=== PATIENT | female | born 1950 | race Caucasian/White ===

== ENCOUNTER 2022-01-26 05:56 | Day surgery (SDC) | payer OTHER ==
[2022-01-20 18:46] VITALS: BMI 26.6
[~2022-01-26 05:56] MED LIST: VANCOMYCIN 1,000 MG VIAL (RESTRICTED TO ID ONLY) IVPB ONE
[2022-01-26] MEDS ORDERED: CELECOXIB 200 MG CAPSULE PO ONE (06:33)
[2022-01-26] MEDS ORDERED: VANCOMYCIN 1,000 MG VIAL (RESTRICTED TO ID ONLY) ONE (07:08)
[2022-01-26] MEDS ORDERED: ceFAZolin SODIUM 1 GM VIAL ONE ×2 (07:08→08:07)
[2022-01-26] MEDS ORDERED: FENTANYL CITRATE/PF 50 MCG/ML VIAL ONE (07:31)
[2022-01-26] MEDS ORDERED: BUPIVACAINE HCL/PF 0.5% (5MG/ML) 10 ML VIAL ONE (07:32)
[2022-01-26] MEDS ORDERED: BUPIVACAINE LIPOSOME/PF (EXPAREL) 266 MG/20 ML VIAL ONE (07:32)
[2022-01-26] MEDS ORDERED: MIDAZOLAM HCL 2 MG/2 ML SINGLE DOSE VIAL ONE (07:32)
[2022-01-26] MEDS ORDERED: CEFAZOLIN 2 GM in DEXTROSE 5%-WATER - 50 ML IVPB ONE (08:00)
[2022-01-26] MEDS ORDERED: TRANEXAMIC ACID 1000 MG/10 ML VIAL IVPUSH ONE (08:00)
[2022-01-26] MEDS ORDERED: MAG HYDROX/AL HYDROX/SIMETH 30 ML UNIT-DOSE CUP PO PRN (08:02)
[2022-01-26] MEDS ORDERED: DEXAMETHASONE SOD PHOSPHATE 4 MG/1 ML VIAL ONE (08:07)
[2022-01-26] MEDS ORDERED: TRANEXAMIC ACID 1000 MG/10 ML VIAL ONE (08:07)
[2022-01-26] MEDS ORDERED: PROPOFOL 20 ML ONE (08:11)
[2022-01-26] MEDS ORDERED: LACTATED RINGERS SOLUTION 1,000 ML IV SCH (08:15)
[2022-01-26] MEDS ORDERED: ZOLPIDEM TARTRATE 5 MG TABLET PO PRN (08:43)
[2022-01-26] MEDS ORDERED: VANCOMYCIN 1,000 MG VIAL (RESTRICTED TO ID ONLY) IVPB ONE (09:13)
[2022-01-26] MEDS ORDERED: ACETAMINOPHEN 1000 MG/100 ML BAG IVPB ONE (11:17)
[2022-01-26] MEDS ORDERED: oxyCODONE HCL 5 MG TABLET PO PRN (11:17)
[2022-01-26] MEDS: MULTIVITAMINS (DAILY MVI) TABLET (FP) PO SCH (11:41)
[2022-01-26] MEDS: PANTOPRAZOLE 40 MG TABLET PO SCH (11:41)
[2022-01-26] MEDS: KETOROLAC TROMETHAMINE 30 MG/1 ML VIAL IVPUSH SCH ×2 (12:00→17:14)
[2022-01-26] MEDS ORDERED: CEFAZOLIN SODIUM 2 GM VIAL ONE ×2 (16:40→23:59)
[2022-01-26] MEDS ORDERED: DEXTROSE 5%-WATER 100 ML IVPB ONE ×2 (16:40→23:59)
[2022-01-26] MEDS: CEFAZOLIN SODIUM 2 GM in DEXTROSE 5%-WATER 100 ML IVPB SCH (16:43)
[2022-01-26] MEDS: oxyCODONE HCL 5 MG TABLET PO PRN (16:51)
[2022-01-26] MEDS: ACETAMINOPHEN 500 MG TABLET (FP) PO SCH (17:15)
[2022-01-26] MEDS: ONDANSETRON 4 MG/2 ML VIAL IVPUSH PRN (19:24)
[2022-01-26] MEDS: SENNOSIDES/DOCUSATE COMBO (SENNA PLUS) TABLET (UD) PO SCH (21:16)
[2022-01-26] MEDS: oxyCODONE HCL 10 MG SUSTAINED ACTING TABLET PO SCH (21:17)
[2022-01-26] MEDS ORDERED: PATIENT'S OWN MEDICATION (NON-FORMULARY) (Zolpidem Tartrate [Ambien] 10 MG Tablet) PO SCH (22:00)
[2022-01-26 23:10] VITALS: TEMP 97.6
[2022-01-27] MEDS: CEFAZOLIN SODIUM 2 GM in DEXTROSE 5%-WATER 100 ML IVPB SCH (00:07)
[2022-01-27] MEDS: ACETAMINOPHEN 500 MG TABLET (FP) PO SCH ×3 (00:08→12:50)
[2022-01-27] MEDS: oxyCODONE HCL 5 MG TABLET PO PRN ×3 (00:12→09:03)
[2022-01-27] MEDS: ONDANSETRON 4 MG/2 ML VIAL IVPUSH PRN ×2 (05:26→09:03)
[2022-01-27] MEDS ORDERED: LEVOTHYROXINE NA 100 MCG TABLET (FP) PO SCH (07:00)
[2022-01-27] MEDS ORDERED: ASPIRIN 325 MG TABLET PO SCH (08:00)
[2022-01-27 08:38] LABS: HEMATOCRIT 41.2 % (32.4-45.2); HEMOGLOBIN 14.4 G/dL (10.7-15.3); MCHC 34.9 g/dl (32.0-36.0); MEAN CELL VOLUME 91.5 fl (80-96); RDW 13.6 % (11.6-15.6)
[2022-01-27 09:16] VITALS: BP 126/68; PULSE 90
[2022-01-27] MEDS: SENNOSIDES/DOCUSATE COMBO (SENNA PLUS) TABLET (UD) PO SCH (10:56)
[2022-01-27] MEDS: MULTIVITAMINS (DAILY MVI) TABLET (FP) PO SCH (10:56)
[2022-01-27] MEDS: oxyCODONE HCL 10 MG SUSTAINED ACTING TABLET PO SCH (10:56)
[2022-01-27] MEDS: PANTOPRAZOLE 40 MG TABLET PO SCH (10:56)
== END 2022-01-27 12:19 | disposition home health service (06) ==
LOC: FASUSAT 05:56 → FASU 05:56 → FM/S 11:14 → FASUSAT 01-27 12:19
PROVIDERS: ATTEND Orthopaedic Surgery
PROC: 8E0YXBZ Computer Assisted Procedure of Lower Extremity (ICD-10-PCS; 2022-01-26)
PROC: 8E0Y0CZ Robotic Assisted Procedure of Lower Extremity, Open Approach (ICD-10-PCS; 2022-01-26)
PROC: 0SRD0JA Replacement of Left Knee Joint with Synthetic Substitute, Uncemented, Open Approach (ICD-10-PCS; principal; 2022-01-26 08:21)
DX: M17.12 Unilateral primary osteoarthritis, left knee (principal)
CPT/HCPCS: 20985; 27447; C1776; S2900; 36415; 73560-TC-LT-FY; 85027; 94760; 97010-GP; 97116-GP; 97161-GP